=== PATIENT | female | born 1980 ===

== ENCOUNTER 2020-05-25 15:15 | Outpatient (REF) | payer BC, SELFPAY ==
[2020-05-28 07:20] LABS: SARS-CoV-2 RNA Undetected (Undetected); SARS-CoV-2 Specimen Source Nasopharynx
== END 2020-05-25 15:35 ==
LOC: NCHCN 15:15
PROVIDERS: Visit Provider Nurse Practitioner Family
DX: Z11.59 Encounter for screening for other viral diseases (principal)
CPT/HCPCS: U0003